=== PATIENT | female | born 1995 | race American Indian/Alaskan Native ===

== ENCOUNTER 2018-12-30 13:31 | Emergency (ER) | payer BC, MEDICAID, OTHER ==
--- NOTE | 2018-12-30 13:41 | Emergency Department Report ---
Blank Doc - Documentation Documentation: This is a 23-year-old female that presents with left sided chest pain that rad iates to left upper ext. Patient stated had syncopal episode yesterday. Stated symptoms of left sided tignling sensation and numbness started 2 weeks ago but chest pain and sycnopal episode was yesterday. Patient also has shortness of breathe. This initial assessment diagnostic orders/clinical plan/treatment(s) is/are subject to change based on patient's health status, clinical progression and re- assessment by fellow clinical providers in the ED. Further treatment and workup at subsequent clinical providers discretion. Patient/guardians urged not to elope from ED s their condition may be serious if not clinically assessed and managed. Initial orders include: 1-labs 2- UA 3- EKG 4- chest xray
[2018-12-30 14:14] LABS: Basophils % (Auto) 0.3 % (0.0-1.8); Eosinophils # (Auto) 0.1 K/mm3 (0.0-0.4); Eosinophils % (Auto) 0.6 % (0.0-4.3); Hematocrit 41.1 % (30.3-42.9); Hemoglobin 12.8 gm/dl (10.1-14.3); Lymphocytes # (Auto) 1.9 K/mm3 (1.2-5.4); Lymphocytes % (Auto) 22.4 % (13.4-35.0); Mean Corpuscular HGB Conc 31 % (30-34); Mean Corpuscular Volume 76 fl (79-97); Monocytes # (Auto) 0.5 K/mm3 (0.0-0.8); Monocytes % (Auto) 6.2 % (0.0-7.3); Platelet Count 298 K/mm3 (140-440); Red Blood Count 5.44 M/mm3 (3.65-5.03); Red Cell Distribution Width 18.5 % (13.2-15.2)
[2018-12-30 14:29] LABS: Partial Thromboplastin Time 33.4 Sec. (24.2-36.6)
[2018-12-30 14:47] LABS: Alanine Aminotransferase 10 units/L (7-56); Albumin 4.5 g/dL (3.9-5); BUN/Creatinine Ratio 18; Blood Urea Nitrogen 11 mg/dL (7-17); Calcium 9.1 mg/dL (8.4-10.2); Hemolysis Index 6
--- NOTE | 2018-12-30 15:21 | XRay Report ---
FINAL REPORT PROCEDURE: XR CHEST ROUTINE 2V TECHNIQUE: PA and lateral views of the chest were obtained HISTORY: Chest Pain COMPARISON: None FINDINGS: Heart size and pulmonary vasculature appear normal. The lungs are clear. No infiltrates masses pulmon doreen edema or pleural effusion visualized. No acute bony abnormalities are identified. There is mild t horacolumbar scoliosis convex to the right. IMPRESSION: No evidence of acute cardiac or pulmonary process. Mild thoracolumbar scoliosis
--- NOTE | 2018-12-30 15:44 | Emergency Department Report ---
ED General Adult HPI - General Chief complaint: Chest Pain Stated complaint: (L) ARM PAIN/DIZZINESS/NUMBNESS HANDS/FEET Time Seen by Provider: 12/30/18 13:38 Source: patient Mode of arrival: Ambulatory Limitations: No Limitations - History of Present Illness Initial comments: Patient is 23 years old female with history of hypertension, noncompliant with her medication. Patient presented to the ER complaining of chest pain for the last week associated with numbness. She denied any shortness of breath, fever or cough. Patient stated that she felt dizzy yesterday at work. Patient stated that she does not check her blood pressure. Severity scale (0 -10): 7 - Related Data Home Medications Medication Instructions Recorded Confirmed Last Taken Vit-Fe Fumar-FA [ 1 tab PO BID 11/11/16 11/11/16 Unknown Vitamin] Previous Rx's Medication Instructions Recorded Last Taken Type Docusate Sodium [Colace] 100 mg PO BID PRN #60 capsule 11/11/16 Unknown Rx Ibuprofen [Motrin] 800 mg PO Q8HR PRN #60 tablet 11/11/16 Unknown Rx Oxycodone HCl/Acetaminophen 1 each PO Q6HR PRN #45 tablet 11/11/16 Unknown Rx [Percocet 7.5/325 mg] RX: Labetalol [Normodyne TAB] 400 mg PO BID #60 tablet 11/11/16 Unknown Rx RX: Labetalol [Normodyne TAB] 400 mg PO BID #60 tablet 11/13/16 Unknown Rx RX: hydroCHLOROthiazide [HCTZ] 25 mg PO QDAY #30 tablet 12/30/18 Unknown Rx Allergies Allergy/AdvReac Type Severity Reaction Status Date / Time No Known Allergies Allergy Verified 12/30/18 13:33 ED Review of Systems ROS: Stated complaint: (L) ARM PAIN/DIZZINESS/NUMBNESS HANDS/FEET Other details as noted in HPI Comment: All other systems reviewed and negative Constitutional: denies: chills, fever Respiratory: denies: cough, orthopnea, shortness of breath, SOB with exertion, SOB at rest, wheezing Cardiovascular: denies: chest pain, palpitations Gastrointestinal: denies: abdominal pain, nausea, vomiting, diarrhea, constipation, hematemesis Musculoskeletal: denies: back pain ED Past Medical Hx - Past Medical History Hx Hypertension: Yes (PIH) Hx Congestive Heart Failure: No Hx Diabetes: No Hx Deep Vein Thrombosis: No Hx Renal Disease: No Hx Sickle Cell Disease: No Hx Seizures: No (preeclampsia) Hx Asthma: No Hx COPD: No Hx HIV: No Additional medical history: GI BLEED,CHRONIC ANEMIA - Surgical History Additional Surgical History: - Social History Smoking Status: Never Smoker Substance Use Type: None - Medications Home Medications: Home Medications Medication Instructions Recorded Confirmed Last Taken Type Docusate Sodium [Colace] 100 mg PO BID PRN #60 capsule 11/11/16 Unknown Rx Ibuprofen [Motrin] 800 mg PO Q8HR PRN #60 tablet 11/11/16 Unknown Rx Oxycodone HCl/Acetaminophen 1 each PO Q6HR PRN #45 tablet 11/11/16 Unknown Rx [Percocet 7.5/325 mg] Vit-Fe Fumar-FA [ 1 tab PO BID 11/11/16 11/11/16 Unknown History Vitamin] RX: Labetalol [Normodyne TAB] 400 mg PO BID #60 tablet 11/11/16 Unknown Rx RX: Labetalol [Normodyne TAB] 400 mg PO BID #60 tablet 11/13/16 Unknown Rx RX: hydroCHLOROthiazide [HCTZ] 25 mg PO QDAY #30 tablet 12/30/18 Unknown Rx ED Physical Exam - General Limitations: No Limitations General appearance: alert, in no apparent distress - Head Head exam: Present: atraumatic, normocephalic, normal inspection - Eye Eye exam: Present: normal appearance, PERRL - ENT ENT exam: Present: normal exam, normal orophraynx, mucous membranes moist - Neck Neck exam: Present: normal inspection, full ROM. Absent: tenderness, meningismus, lymphadenopathy, thyromegaly - Respiratory Respiratory exam: Present: normal lung sounds bilaterally. Absent: respiratory distress, wheezes, rales, rhonchi, stridor, chest wall tenderness, accessory muscle use, decreased breath sounds, prolonged expiratory - Cardiovascular Cardiovascular Exam: Present: regular rate, normal rhythm, normal heart sounds - GI/Abdominal GI/Abdominal exam: Present: soft, normal bowel sounds. Absent: distended, tenderness, guarding, rebound, rigid, organomegaly, mass, bruit, pulsatile mass, hernia - Extremities Exam Extremities exam: Present: normal inspection, full ROM, normal capillary refill. Absent: pedal edema, calf tenderness - Back Exam Back exam: Present: normal inspection, full ROM. Absent: tenderness, CVA tenderness (R), CVA tenderness (L), muscle spasm - Neurological Exam Neurological exam: Present: alert, oriented X3, CN II-XII intact, normal gait, reflexes normal - Psychiatric Psychiatric exam: Present: normal mood - Skin Skin exam: Present: warm, intact, normal color ED Course Vital Signs 12/30/18 12/30/18 13:39 16:08 Temperature 98.4 F Pulse Rate 83 92 H Respiratory 18 Rate Blood Pressure 158/98 Blood Pressure 147/87 [Right] O2 Sat by Pulse 100 Oximetry ED Medical Decision Making - Lab Data Result diagrams: 12/30/18 14:03 12/30/18 14:03 - EKG Data -: EKG Interpreted by [facility] EKG shows normal: sinus rhythm Rate: normal - EKG Data Interpretation: no acute changes - Radiology Data Radiology results: report reviewed Chest x-ray is unremarkable. - Medical Decision Making Patient is 23 years old female with history of hypertension, noncompliant with her medication. Patient presented to the ER complaining of chest pain for the last week associated with numbness. She denied any shortness of breath, fever or cough. Patient stated that she felt dizzy yesterday at work. Patient stated that she does not check her blood pressure. Patient denied any distended this moment. EKG is unremarkable. Chest x-ray is negative. Troponin is negative. D-dimer was ordered by triage, came back slightly up, But no clinical evidence of pulmonary embolism. I believe the patient's symptoms is most likely related to her increased blood pressure. I will start patient on hydrochlorothiazide and advised patient to follow up with her primary care physician. Critical care attestation.: If time is entered above; I have spent that time in minutes in the direct care of this critically ill patient, excluding procedure time. ED Disposition Clinical Impression: Chest pain, Hypertension Disposition: -01 TO HOME OR SELFCARE Is pt being admited?: No Condition: Stable Instructions: Chest Pain (ED), Hypertension (ED) Prescriptions: RX: hydroCHLOROthiazide [HCTZ] 25 mg PO QDAY #30 tablet Referrals: LAILA WEATHERS [Primary Care Provider] - 3-5 Days Forms: Accompanied Note, Work/School Release Form(ED)
[2018-12-30 16:09] VITALS: BP 147/87
== END 2018-12-30 16:10 | disposition home or self-care (01) ==
LOC: ED 13:31
DX: R07.89 Other chest pain (principal); I10 Essential (primary) hypertension; Z86.2 Personal history of diseases of the blood and blood-forming organs and certain disorders involving the immune mechanism; Z79.899 Other long term (current) drug therapy
CPT/HCPCS: 36415; 71046; 80053; 84484; 84703; 85025; 85379; 85610; 85730; 93005; 93010

== ENCOUNTER 2019-04-17 11:40 | Emergency (ER) | payer BC, OTHER ==
--- NOTE | 2019-04-17 11:46 | Emergency Department Report ---
Blank Doc - Documentation Documentation: This is a 24-year-old female that presents with intermittent headaches and left sided cervical paraspinal area with radiation to left shoulder. Denies worst headache. Denies any blurry vision. Denies any head trauma. Denies any other complaints or symptoms. This initial assessment/diagnostic orders/clinical plan/treatment(s) is/are subject to change based on patient's health status, clinical progression and re- assessment by fellow clinical providers in the ED. Further treatment and workup at subsequent clinical providers discretion. Patient/guardians urged not to elope from the ED as their condition may be serious if not clinically assessed and managed. Initial orders include: 1- Patient sent to [facility] for further evaluation and treatment
[2019-04-17] MEDS ORDERED: FLEXERIL PO ONE (12:06)
[2019-04-17] MEDS ORDERED: IBUPROFEN PO ONE (12:06)
[2019-04-17] MEDS ORDERED: DELTASONE PO ONE (12:06)
--- NOTE | 2019-04-17 12:25 | Emergency Department Report ---
HPI - General Chief Complaint: Neck Pain/Injury Time Seen by Provider: 04/17/19 11:44 - HPI HPI: Patient is a 24-year-old -[place] female who comes to the ER today complaining of left trapezius area and neck pain. With it. Patient denies any trauma. She has no fever, nuchal rigidity, fever or other meningeal signs. The pain is worse with movement. On admission the patient's blood pressure was noted to be elevated. She states that she had preeclampsia with the in 2016. However, after that she was never told that she had high blood pressure needed to take medications. Patient denies headache, chest pain or shortness of breath. Patient denies alcohol or drugs or cigarettes. Mother and father are both alive. She doesn't know the details of her father's medical history. But she does know that her mother has a history of hypertension and heart failure. Primary care is Dr. Bakari MEMBRENO Past Medical Hx - Past Medical History Previous Medical History?: Yes Hx Hypertension: Yes (PIH) Hx Congestive Heart Failure: No Hx Diabetes: No Hx Deep Vein Thrombosis: No Hx Renal Disease: No Hx Sickle Cell Disease: No Hx Seizures: No (preeclampsia) Hx Asthma: No Hx COPD: No Hx HIV: No Additional medical history: GI BLEED,CHRONIC ANEMIA - Surgical History Past Surgical History?: Yes Additional Surgical History: - Family History Family history: no significant - Social History Smoking Status: Never Smoker Substance Use Type: None - Medications Home Medications: Home Medications Medication Instructions Recorded Confirmed Last Taken Type Cyclobenzaprine [Flexeril] 10 mg PO TID PRN #10 tablet 04/17/19 Unknown Rx Naproxen [Naprosyn] 500 mg PO BID PRN #20 tablet 04/17/19 Unknown Rx hydroCHLOROthiazide [HCTZ] 25 mg PO DAILY #30 tablet 04/17/19 Unknown Rx predniSONE [Deltasone] 20 mg PO DAILY #5 tablet 04/17/19 Unknown Rx ED Review of Systems ROS: Stated complaint: HEADACHE/NUMBNESS/CHEST PAIN Other details as noted in HPI Comment: All other systems reviewed and negative Physical Exam - Physical Exam Vital Signs: Vital Signs 04/17/19 04/17/19 04/17/19 11:44 12:14 12:15 Temperature 97.7 F Pulse Rate 98 H Respiratory 18 18 Rate Blood Pressure 156/118 Blood Pressure 170/111 [Right] O2 Sat by Pulse 99 Oximetry General: - ENT ENT exam: Present: normal exam, normal orophraynx, mucous membranes moist, normal external ear exam - Neck Neck exam: Present: normal inspection, full ROM. left trapez. muscle spasm noted on exam. no cervical spine tenderness. Absent: tenderness, meningismus - Respiratory Respiratory exam: Present: normal lung sounds bilaterally. Absent: respiratory distress, wheezes, rales, rhonchi, stridor, chest wall tenderness, accessory muscle use, decreased breath sounds, prolonged expiratory - Cardiovascular Cardiovascular Exam: Present: regular rate, normal rhythm, normal heart sounds. Absent: bradycardia, tachycardia, irregular rhythm, systolic murmur, diastolic murmur, rubs, gallop - GI/Abdominal GI/Abdominal exam: Present: soft. Absent: distended, tenderness, guarding, rebound, rigid, pulsatile mass - Rectal Rectal exam: Present: deferred - Extremities Exam Extremities exam: Present: normal inspection, full ROM, other (2+ pulses noted in the bilateral upper extremities. 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 Absent: calf tenderness - Back Exam Back exam: Present: normal inspection, full ROM. Absent: tenderness, CVA tenderness (R), CVA tenderness (L), paraspinal tenderness, vertebral tenderness - Neurological Exam Neurological exam: Present: alert, oriented X3, normal gait, other (Extraocular movements intact. Tongue midline. No facial droop. Facial sensation intact to light touch in the V1, V2, V3 distribution bilaterally. 5 and 5 strength in 4 extremities.. Sensation is intact to light touch in 4 extremities.). Absent: motor sensory deficit - Psychiatric Psychiatric exam: normal affect and mood - Skin Skin exam: Present: warm, dry, intact, normal color. Absent: rash ED Course Vital Signs 04/17/19 04/17/19 04/17/19 11:44 12:14 12:15 Temperature 97.7 F Pulse Rate 98 H Respiratory 18 18 Rate Blood Pressure 156/118 Blood Pressure 170/111 [Right] O2 Sat by Pulse 99 Oximetry ED Medical Decision Making - Lab Data Result diagrams: 04/17/19 15:41 04/17/19 15:41 - Medical Decision Making co left trap pain with spasm on exam. no trauma. she woke up like this. she has no other symptoms. no cp, no sob, no headache bp noted to be inc on admit denies being told to take bp meds in the past review of the EMR suggests otherwise exam is normal with exception of trap muscle spasm on left neuro intact she is here with her friends including her girlfriend that she is cuddled up on the chair with. during one reexam at approx 1430 pt was sound asleep laying on her left side over one of the green ER chairs. But when she woke up she stated she was still in pain. pt has full ROM of the neck. medicated for pain and blood pressure and was initially refractory but then trended down. Long discussion with pt about her bp and need to monitor and take RX she has been given. pt being dc home with dc plan of care including Rx for HCTZ and follow up referral Vital Signs 04/17/19 04/17/19 04/17/19 11:44 12:14 12:15 Temperature 97.7 F Pulse Rate 98 H Respiratory 18 18 Rate Blood Pressure 156/118 Blood Pressure 170/111 [Right] O2 Sat by Pulse 99 Oximetry 04/17/19 04/17/19 13:20 15:31 Temperature 97.6 F Pulse Rate 78 78 Respiratory 16 Rate Blood Pressure 128/88 Blood Pressure 165/107 [Right] O2 Sat by Pulse 100 Oximetry - Differential Diagnosis neck spasm Critical care attestation.: If time is entered above; I have spent that time in minutes in the direct care of this critically ill patient, excluding procedure time. ED Disposition Clinical Impression: Torticollis, Elevated blood pressure reading Disposition: DC-01 TO HOME OR SELFCARE Is pt being admited?: No Does the pt Need Aspirin: No Condition: Stable Instructions: Spasmodic Torticollis (ED), DASH Eating Plan (ED), Hypertension (ED) Additional Instructions: DIET TOLERATED MEDS ORDERED TODAY IN ER FOLLOW UP PCP WITHIN 48 HOURS TO ENSURE YOU ARE GETTING BETTER ACTIVITY TOLERATED MOTRIN OR TYLENOL FOR PAIN OR FEVER RETURN TO THE ER FOR WORSENING SYMPTOMS . Prescriptions: predniSONE [Deltasone] 20 mg PO DAILY #5 tablet Cyclobenzaprine [Flexeril] 10 mg PO TID PRN #10 tablet PRN Reason: Muscle Spasm hydroCHLOROthiazide [HCTZ] 25 mg PO DAILY #30 tablet Naproxen [Naprosyn] 500 mg PO BID PRN #20 tablet PRN Reason: Pain Referrals: PRIMARY CARE, [Primary Care Provider] - 3-5 Days [facility] [Outside] - 3-5 Days Forms: Accompanied Note, Work/School Release Form(ED) Time of Disposition: 13:53
[2019-04-17] MEDS ORDERED: CATAPRES PO ONE (13:12)
[2019-04-17] MEDS ORDERED: APRESOLINE IV ONE (14:56)
[2019-04-17 15:32] VITALS: BP 128/88
[2019-04-17 15:56] LABS: Hematocrit 41.9 % (30.3-42.9); Hemoglobin 13.5 gm/dl (10.1-14.3); Mean Corpuscular HGB Conc 32 % (30-34); Mean Corpuscular Volume 77 fl (79-97); Platelet Count 297 K/mm3 (140-440); Red Blood Count 5.47 M/mm3 (3.65-5.03); Red Cell Distribution Width 15.2 % (13.2-15.2)
[2019-04-17 16:51] LABS: BUN/Creatinine Ratio 20; Blood Urea Nitrogen 12 mg/dL (7-17); Calcium 9.4 mg/dL (8.4-10.2); Hemolysis Index 5
== END 2019-04-17 15:55 | disposition home or self-care (01) ==
LOC: ED 11:40
DX: J03.90 Acute tonsillitis, unspecified (principal); R03.0 Elevated blood-pressure reading, without diagnosis of hypertension; I10 Essential (primary) hypertension; Z86.2 Personal history of diseases of the blood and blood-forming organs and certain disorders involving the immune mechanism; G89.29 Other chronic pain
CPT/HCPCS: 36415; 80048; 85027; 99283; J0360; J7512

== ENCOUNTER 2019-07-18 09:45 | Emergency (ER) | payer SELFPAY ==
[2019-07-18] MEDS ORDERED: DELTASONE PO ONE (10:38)
--- NOTE | 2019-07-18 10:41 | Emergency Department Report ---
HPI - General Chief Complaint: Extremity Injury, Lower Time Seen by Provider: 07/18/19 10:26 - HPI HPI: 24-year-old -[place] female presents to the emergency department with complaint of a 4 day history of some left hip and leg pain. She says that it started Monday night at work and there was no obvious injury or trauma but there was one instance where she says that she moved funny and started to have some discomfort that got progressively worse. The pain worsens with standing, walking and generalized movements of the left leg. She denies any significant back pain. She denies any problems with bowel or bladder. She does say that she has some paresthesias that were occurring last night. The patient went to [facility] and was told that she had a "pinched nerve" that sounds like sciatica. She was placed on tramadol, ibuprofen and Flexeril which she says she has been taking without much relief. The symptoms are causing her to have difficulty performing her job and she was told to get a second opinion. ED Past Medical Hx - Past Medical History Hx Hypertension: Yes (PIH) Hx Congestive Heart Failure: No Hx Diabetes: No Hx Deep Vein Thrombosis: No Hx Renal Disease: No Hx Sickle Cell Disease: No Hx Seizures: No (preeclampsia) Hx Asthma: No Hx COPD: No Hx HIV: No Additional medical history: GI BLEED,CHRONIC ANEMIA - Surgical History Additional Surgical History: - Social History Smoking Status: Never Smoker Substance Use Type: None - Medications Home Medications: Home Medications Medication Instructions Recorded Confirmed Last Taken Type Cyclobenzaprine [Flexeril] 10 mg PO TID PRN #10 tablet 04/17/19 Unknown Rx Naproxen [Naprosyn] 500 mg PO BID PRN #20 tablet 04/17/19 Unknown Rx hydroCHLOROthiazide [HCTZ] 25 mg PO DAILY #30 tablet 04/17/19 Unknown Rx predniSONE [Deltasone] 20 mg PO DAILY #5 tablet 04/17/19 Unknown Rx predniSONE [Deltasone] 20 mg PO BID #8 tab 07/18/19 Unknown Rx ED Review of Systems ROS: Stated complaint: RT HIP PAIN Other details as noted in HPI Comment: All other systems reviewed and negative Constitutional: denies: chills, fever Respiratory: denies: cough, shortness of breath Gastrointestinal: denies: abdominal pain Genitourinary: denies: dysuria, discharge Musculoskeletal: arthralgia, myalgia. denies: joint swelling Skin: denies: rash, lesions Neurological: paresthesias. denies: weakness Physical Exam - Physical Exam Vital Signs: Vital Signs 07/18/19 09:51 Temperature 97.8 F Pulse Rate 78 Respiratory 20 Rate Blood Pressure 178/112 O2 Sat by Pulse 98 Oximetry Physical Exam: GENERAL: The patient is well-developed well-nourished. HENT: Normocephalic. Atraumatic. Patient has moist mucous membranes. EYES: Extraocular motions are intact. NECK: Supple. Trachea is midline. ABDOMEN: There is no abdominal distention. SKIN: Skin is warm and dry. NEURO: The patient is awake, alert, and oriented. The patient is cooperative. The patient has no focal neurologic deficits. Normal speech. MUSCULOSKELETAL: There is some tenderness to palpation to the left lateral thigh and hip but no obvious deformity. Positive left straight leg raise test. There is no limitation range of motion. There is no evidence of acute injury. BACK: No midline thoracic or lumbar tenderness to palpation, step-off or deformity. ED Course Vital Signs 07/18/19 09:51 Temperature 97.8 F Pulse Rate 78 Respiratory 20 Rate Blood Pressure 178/112 O2 Sat by Pulse 98 Oximetry ED Medical Decision Making - Medical Decision Making This patient presents with a complaint of pain from the left hip and buttock down through the left knee. There was a time at work a few days ago where she started feeling some pain after moving in an abnormal way but there is been no fall or obvious trauma. She has no midline thoracic or lumbar pain. She has no problems with bowel or bladder, or any neurological deficits. She is positive on left straight leg raise test. All of the signs and symptoms appear consistent with sciatica or radiculopathy. X-ray or CT imaging does not appear as if it would be helpful at this time. She has been placed on pain medication, muscle relaxers by another previous facility. I am placing the patient on steroids and giving her a referral for an orthopedist. If her pain continues, she may need an MRI in the near future. Otherwise she has been instructed to return to the emergency Department with any worsening of her symptoms are any acute distress. - Differential Diagnosis sciatica, peripheral neuropathy, muscle spasms Critical Care Time: No Critical care attestation.: If time is entered above; I have spent that time in minutes in the direct care of this critically ill patient, excluding procedure time. ED Disposition Clinical Impression: Sciatica of left side, Left leg pain, Elevated blood pressure reading Disposition: TO HOME OR SELFCARE Is pt being admited?: No Condition: Stable Instructions: Sciatica (ED), Arthralgia (ED) Additional Instructions: Please follow-up with a primary care physician in the next few days. I am giving you a referral for 2 different local orthopedic groups, Dr. Good and Mitra, to follow up regarding your hip and leg pain, and suspected sciatica. Take your medications as prescribed. Return to the emergency Department with any worsening of your symptoms or any acute distress. Prescriptions: predniSONE [Deltasone] 20 mg PO BID #8 tab Referrals: STALIN GOOD MD [Staff Physician] - 2-3 Days [facility] [Provider Group] - 2-3 Days Time of Disposition: 10:41
[2019-07-18 10:56] VITALS: BP 171/102
== END 2019-07-18 10:59 | disposition home or self-care (01) ==
LOC: ED 09:45
DX: M54.32 Sciatica, left side (principal); I10 Essential (primary) hypertension
CPT/HCPCS: J7512

== ENCOUNTER 2019-11-09 18:13 | Emergency (ER) | payer OTHER ==
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
[2019-11-09 20:23] LABS: Basophils # (Auto) 0.1 K/mm3 (0.0-0.1); Basophils % (Auto) 0.6 % (0.0-1.8); Eosinophils % (Auto) 0.2 % (0.0-4.3); Hematocrit 39.8 % (30.3-42.9); Hemoglobin 12.5 gm/dl (10.1-14.3); Lymphocytes # (Auto) 2.2 K/mm3 (1.2-5.4); Lymphocytes % (Auto) 15.4 % (13.4-35.0); Mean Corpuscular HGB Conc 31 % (30-34); Mean Corpuscular Volume 74 fl (79-97); Monocytes # (Auto) 0.6 K/mm3 (0.0-0.8); Monocytes % (Auto) 4.1 % (0.0-7.3); Platelet Count 327 K/mm3 (140-440); Red Blood Count 5.35 M/mm3 (3.65-5.03)
[2019-11-09 20:34] LABS: BUN/Creatinine Ratio 22; Blood Urea Nitrogen 13 mg/dL (7-17); Calcium 9.2 mg/dL (8.4-10.2); Hemolysis Index 196
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
[2019-11-09] MEDS ORDERED: ONDANSETRON 4 MG/2 ML INJ ONE (22:06)
[2019-11-09] MEDS ORDERED: KETOROLAC 30 MG/1 ML INJ ONE (22:06)
[2019-11-09] MEDS ORDERED: ONDANSETRON 4 MG/2 ML INJ IV ONE (22:14)
[2019-11-09] MEDS ORDERED: KETOROLAC 30 MG/1 ML INJ IV ONE (22:14)
[2019-11-09 23:16] VITALS: BP 137/91
== END 2019-11-09 23:18 | disposition home or self-care (01) ==
LOC: ED 18:13
DX: S30.1XXA Contusion of abdominal wall, initial encounter (principal); S09.90XA Unspecified injury of head, initial encounter; S19.80XA Other specified injuries of unspecified part of neck, initial encounter; I10 Essential (primary) hypertension; Z79.899 Other long term (current) drug therapy; Z98.890 Other specified postprocedural states; Z86.2 Personal history of diseases of the blood and blood-forming organs and certain disorders involving the immune mechanism; V89.2XXA Person injured in unspecified motor-vehicle accident, traffic, initial encounter; Y93.89 Activity, other specified; Y92.410 Unspecified street and highway as the place of occurrence of the external cause; Y99.8 Other external cause status
CPT/HCPCS: 36415; 70450; 72125; 73562; 74177; 80048; 84703; 85025; 96374; 96375; 99285; J1885; J2405; Q9967

== ENCOUNTER 2019-12-13 14:52 | Emergency (ER) | payer SELFPAY ==
--- NOTE | 2019-12-13 15:32 | Event Note ---
ED Screening Note Date of service: 12/13/19 Time: 15:28 ED Screening Note: This is a 24 y.o. F. that presents with sore throat and chills for 3 days. Taking Benadryl. - n/v, fever This initial assessment/diagnostic orders/clinical plan/treatment(s) is/are subject to change based on patients health status, clinical progression and re- assessment by fellow clinical providers in the ED. Further treatment and workup at subsequent clinical providers discretion. Patient/guardian urged not to elope from the ED as their condition may be serious if not clinically assessed and managed. Initial orders include: rapid strep
--- NOTE | 2019-12-13 16:41 | Emergency Department Report ---
ED ENT HPI - General Chief complaint: Upper Respiratory Infection Stated complaint: CHILLS/COUGH/SORETHROAT Time Seen by Provider: 12/13/19 15:28 Source: patient Mode of arrival: Ambulatory Limitations: No Limitations - History of Present Illness Initial comments: Thom is a 24 yo female with hx of hypertension who presents with sore throat and chills for 3 days. Hurts to swallow. 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 Mild pain. +nasal congestion. She does not take medication for hypertension per her personal choice. MD complaint: sore throat -: Gradual Severity: moderate Consistency: constant Worsens with: swallowing Associated Symptoms: fever - Related Data Previous Rx's Medication Instructions Recorded Last Taken Type Cyclobenzaprine [Flexeril] 10 mg PO TID PRN #10 tablet 04/17/19 Unknown Rx Naproxen [Naprosyn] 500 mg PO BID PRN #20 tablet 04/17/19 Unknown Rx hydroCHLOROthiazide [HCTZ] 25 mg PO DAILY #30 tablet 04/17/19 Unknown Rx predniSONE [Deltasone] 20 mg PO DAILY #5 tablet 04/17/19 Unknown Rx predniSONE [Deltasone] 20 mg PO BID #8 tab 07/18/19 Unknown Rx Cyclobenzaprine HCl [Flexeril 5 MG 5 mg PO TID PRN #21 tab 11/09/19 Unknown Rx TAB] Naproxen [Naprosyn] 500 mg PO BID #14 tablet 11/09/19 Unknown Rx Clindamycin [Clindamycin CAP] 2 tab PO TID 10 Days #60 capsule 12/13/19 Unknown Rx Allergies Allergy/AdvReac Type Severity Reaction Status Date / Time No Known Allergies Allergy Verified 07/18/19 09:46 ED Dental HPI - General Chief complaint: Upper Respiratory Infection Stated complaint: CHILLS/COUGH/SORETHROAT Time Seen by Provider: 12/13/19 15:28 Source: patient Mode of arrival: Ambulatory Limitations: No Limitations - Related Data Previous Rx's Medication Instructions Recorded Last Taken Type Cyclobenzaprine [Flexeril] 10 mg PO TID PRN #10 tablet 04/17/19 Unknown Rx Naproxen [Naprosyn] 500 mg PO BID PRN #20 tablet 04/17/19 Unknown Rx hydroCHLOROthiazide [HCTZ] 25 mg PO DAILY #30 tablet 04/17/19 Unknown Rx predniSONE [Deltasone] 20 mg PO DAILY #5 tablet 04/17/19 Unknown Rx predniSONE [Deltasone] 20 mg PO BID #8 tab 07/18/19 Unknown Rx Cyclobenzaprine HCl [Flexeril 5 MG 5 mg PO TID PRN #21 tab 11/09/19 Unknown Rx TAB] Naproxen [Naprosyn] 500 mg PO BID #14 tablet 11/09/19 Unknown Rx Clindamycin [Clindamycin CAP] 2 tab PO TID 10 Days #60 capsule 12/13/19 Unknown Rx Allergies Allergy/AdvReac Type Severity Reaction Status Date / Time No Known Allergies Allergy Verified 07/18/19 09:46 ED Review of Systems ROS: Stated complaint: CHILLS/COUGH/SORETHROAT Other details as noted in HPI Comment: All other systems reviewed and negative Constitutional: chills, fever, malaise ENT: congestion Respiratory: denies: cough, shortness of breath Cardiovascular: denies: chest pain Gastrointestinal: denies: abdominal pain, nausea ED Past Medical Hx - Past Medical History Previous Medical History?: Yes Hx Hypertension: Yes (PIH) Hx Congestive Heart Failure: No Hx Diabetes: No Hx Deep Vein Thrombosis: No Hx Renal Disease: No Hx Sickle Cell Disease: No Hx Seizures: No (preeclampsia) Hx Asthma: No Hx COPD: No Hx HIV: No Additional medical history: GI BLEED,CHRONIC ANEMIA - Surgical History Additional Surgical History: - Social History Smoking Status: Never Smoker Substance Use Type: None - Medications Home Medications: Home Medications Medication Instructions Recorded Confirmed Last Taken Type Cyclobenzaprine [Flexeril] 10 mg PO TID PRN #10 tablet 04/17/19 Unknown Rx Naproxen [Naprosyn] 500 mg PO BID PRN #20 tablet 04/17/19 Unknown Rx hydroCHLOROthiazide [HCTZ] 25 mg PO DAILY #30 tablet 04/17/19 Unknown Rx predniSONE [Deltasone] 20 mg PO DAILY #5 tablet 04/17/19 Unknown Rx predniSONE [Deltasone] 20 mg PO BID #8 tab 07/18/19 Unknown Rx Cyclobenzaprine HCl [Flexeril 5 MG 5 mg PO TID PRN #21 tab 11/09/19 Unknown Rx TAB] Naproxen [Naprosyn] 500 mg PO BID #14 tablet 11/09/19 Unknown Rx Clindamycin [Clindamycin CAP] 2 tab PO TID 10 Days #60 capsule 12/13/19 Unknown Rx ED Physical Exam - General Limitations: No Limitations General appearance: alert, in no apparent distress, other (normal voice appears well) - Head Head exam: Present: atraumatic, normocephalic - Eye Eye exam: Present: normal appearance - ENT ENT exam: Present: other (enlarged tonsil 2 cm in diameter on right, no tonsi llar swelling on the left) - Neck Neck exam: Present: normal inspection, full ROM - Respiratory Respiratory exam: Present: normal lung sounds bilaterally. Absent: respiratory distress, wheezes, rales, rhonchi - Cardiovascular Cardiovascular Exam: Present: regular rate, normal rhythm, normal heart sounds. Absent: systolic murmur, diastolic murmur, rubs, gallop - GI/Abdominal GI/Abdominal exam: Present: soft, normal bowel sounds. Absent: distended, tenderness, guarding, rebound - Extremities Exam Extremities exam: Present: normal inspection - Neurological Exam Neurological exam: Present: alert, oriented X3 - Psychiatric Psychiatric exam: Present: normal affect, normal mood - Skin Skin exam: Present: warm, dry, intact, normal color. Absent: rash ED Course Vital Signs 12/13/19 14:55 Temperature 98.7 F Pulse Rate 100 H Respiratory 16 Rate Blood Pressure 175/113 O2 Sat by Pulse 100 Oximetry ED Medical Decision Making - Medical Decision Making Ms. Hooper has a 2 cm right peritonsillar abscess. She declined needle aspiration. I informed her that antibiotics may not resolve the issue. Due to small size, normal voice she is able to be discharged. She understand to return if symptoms do not improve. She received IV dexamethasone and IV clindamycin in the emergency department. Critical care attestation.: If time is entered above; I have spent that time in minutes in the direct care of this critically ill patient, excluding procedure time. ED Disposition Clinical Impression: Peritonsillar abscess Disposition: DC-01 TO HOME OR SELFCARE Is pt being admited?: No Does the pt Need Aspirin: No Condition: Stable Instructions: Peritonsillar Abscess (ED) Prescriptions: Clindamycin [Clindamycin CAP] 2 tab PO TID 10 Days #60 capsule Referrals: CORBIN KEITH MD [Staff Physician] - 3-5 Days
[2019-12-13] MEDS ORDERED: dexAMETHasone 20 MG/5 ML VIAL IV ONE (16:45)
[2019-12-13 18:20] VITALS: BP 142/88
== END 2019-12-13 18:02 | disposition home or self-care (01) ==
LOC: ED 14:52
DX: J36 Peritonsillar abscess (principal); I10 Essential (primary) hypertension
CPT/HCPCS: 87116; 87430; 96365; 96375; 99283; J1100

== ENCOUNTER 2020-10-09 23:03 | Emergency (ER) | payer SELFPAY ==
--- NOTE | 2020-10-10 02:17 | XRay Report ---
XR foot 3+V RT INDICATION: Right great toe pain. COMPARISON: No relevant prior imaging study available. FINDINGS: No acute skeletal abnormality. No significant soft tissue abnormality. IMPRESSION: 1. No acute findings. Signer Name: Arnold Winchester MD Signed: 10/10/2020 2:12 AM Workstation Name: [id number]
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
[2020-10-10 03:06] VITALS: BP 136/89
[2020-10-10] MEDS ORDERED: KETOROLAC 30 MG/1 ML INJ IM ONE (03:51)
== END 2020-10-10 03:05 | disposition home or self-care (01) ==
LOC: ED 23:03
DX: S99.921A Unspecified injury of right foot, initial encounter (principal); I10 Essential (primary) hypertension; Z98.890 Other specified postprocedural states; Z79.899 Other long term (current) drug therapy
CPT/HCPCS: 73630; 96372; 99283; J1885

== ENCOUNTER 2020-10-30 11:51 | Emergency (ER) | payer SELFPAY ==
--- NOTE | 2020-10-30 12:02 | Event Note ---
ED Screening Note Date of service: 10/30/20 Time: 12:00 ED Screening Note: 25-year-old -[place] female presents to the emergency room for complaints of body aches nausea vomiting diarrhea and no taste or smell. Patient reports a history of hypertension during her gestational . This initial assessment/diagnostic orders/clinical plan/treatment(s) is/are subject to change based on patients health status, clinical progression and re- assessment by fellow clinical providers in the ED. Further treatment and workup at subsequent clinical providers discretion. Patient/guardian urged not to elope from the ED as their condition may be serious if not clinically assessed and managed. Initial orders include:
[2020-10-30 13:02] LABS: Bilirubin,Urine NEG (Negative); Blood,Urine SM (Negative); Color,Urine Yellow (Yellow); Mucus,Urine FEW /HPF; Protein,Urine <15 mg/dL mg/dL (Negative); Urobilinogen,Urine < 2.0 mg/dL (<2.0)
[2020-10-30 13:03] LABS: HCG Qualitative,Urine Negative (Negative)
[2020-10-30 13:45] LABS: Basophils # (Auto) 0.1 K/mm3 (0.0-0.1); Eosinophils % (Auto) 0.3 % (0.0-4.3); Hematocrit 37.9 % (30.3-42.9); Hemoglobin 12.3 gm/dl (10.1-14.3); Lymphocytes # (Auto) 2.7 K/mm3 (1.2-5.4); Lymphocytes % (Auto) 39.6 % (13.4-35.0); Mean Corpuscular HGB Conc 32 % (30-34); Mean Corpuscular Volume 77 fl (79-97); Monocytes # (Auto) 0.3 K/mm3 (0.0-0.8); Monocytes % (Auto) 4.8 % (0.0-7.3); Platelet Count 293 K/mm3 (140-440); Red Blood Count 4.95 M/mm3 (3.65-5.03); Red Cell Distribution Width 15.1 % (13.2-15.2)
[2020-10-30 13:59] LABS: Alanine Aminotransferase 11 units/L (7-56); Albumin 4.3 g/dL (3.9-5); Blood Urea Nitrogen 10 mg/dL (7-17); Calcium 9.4 mg/dL (8.4-10.2); Hemolysis Index 7
[2020-10-30 14:33] LABS: BUN/Creatinine Ratio 14
[2020-10-30] MEDS ORDERED: DICYCLOMINE 20 MG/2 ML INJ IM ONE (15:20)
[2020-10-30] MEDS ORDERED: ONDANSETRON 4 MG ODT TAB PO ONE (15:20)
[2020-10-30] MEDS ORDERED: KETOROLAC 60 MG/2 ML INJ IM ONE (15:20)
--- NOTE | 2020-10-30 15:21 | Emergency Department Report ---
ED General Adult HPI - General Chief complaint: Nausea/Vomiting/Diarrhea Stated complaint: NAUSE/DIARRHEA/BODY PAIN/TASTE Time Seen by Provider: 10/30/20 14:15 Source: patient Mode of arrival: Ambulatory Limitations: No Limitations - History of Present Illness Initial comments: 25-year-old female presents to the ER today complaint of nausea, vomiting, di arrhea, body aches and headache. Patient states that her symptoms started yesterday. Patient states that she has vomited multiple times since her symptoms started yesterday. She states that emesis is mainly liquid or food. She states that she cannot keep anything down. She also reports diarrhea. She states that she has had about 6 episodes of watery stools per day. She denies any coffee-ground emesis, hematemesis, melena or hematochezia. She reports abdominal cramping, as well as lack of taste and smell. She denies any URI symptoms, cough, fever or chills. She states that her job did inform them that there was somebody at her facility who was COVID-19 positive, but it was not anybody in her department. Otherwise she denies any known COVID-19 contacts, or any other ill contacts. She denies any recent antibiotic use. She denies any bad food intake, or recent travel. Patient blood pressure noted to be elevated at triage, but patient denies any history of hypertension or any other significant past medical history. MD Complaint: Nausea, vomiting, diarrhea, body aches and headache -: Gradual (onset yesterday) - Related Data Previous Rx's Medication Instructions Recorded Last Taken Type hydroCHLOROthiazide [HCTZ] 25 mg PO DAILY #30 tablet 04/17/19 Unknown Rx Dicyclomine [Bentyl] 10 mg PO TID #30 capsule 10/30/20 Unknown Rx Ketorolac [Toradol] 10 mg PO Q6H PRN #20 tablet 10/30/20 Unknown Rx Ondansetron [Zofran ODT TAB] 4 mg PO ONCE PRN #12 tab.rapdis 10/30/20 Unknown Rx Allergies Allergy/AdvReac Type Severity Reaction Status Date / Time No Known Allergies Allergy Verified 07/18/19 09:46 ED Review of Systems ROS: Stated complaint: NAUSE/DIARRHEA/BODY PAIN/TASTE Other details as noted in HPI Comment: All other systems reviewed and negative Constitutional: denies: chills, fever Eyes: denies: eye pain, eye discharge, vision change ENT: denies: ear pain, throat pain Respiratory: denies: cough, shortness of breath, wheezing Cardiovascular: denies: chest pain, palpitations Gastrointestinal: abdominal pain, nausea, vomiting, diarrhea. denies: constipation, hematemesis, melena, hematochezia Genitourinary: denies: urgency, dysuria, discharge Musculoskeletal: arthralgia, myalgia Neurological: headache Psychiatric: denies: anxiety, depression Hematological/Lymphatic: denies: easy bleeding, easy bruising ED Past Medical Hx - Past Medical History Previous Medical History?: Yes Hx Hypertension: Yes (PIH) Hx Congestive Heart Failure: No Hx Diabetes: No Hx Deep Vein Thrombosis: No Hx Renal Disease: No Hx Sickle Cell Disease: No Hx Seizures: (preeclampsia) Hx Asthma: No Hx COPD: No Hx HIV: No Additional medical history: GI BLEED,CHRONIC ANEMIA - Surgical History Past Surgical History?: Yes Additional Surgical History: - Social History Smoking Status: Never Smoker Substance Use Type: None - Medications Home Medications: Home Medications Medication Instructions Recorded Confirmed Last Taken Type hydroCHLOROthiazide [HCTZ] 25 mg PO DAILY #30 tablet 04/17/19 Unknown Rx Dicyclomine [Bentyl] 10 mg PO TID #30 capsule 10/30/20 Unknown Rx Ketorolac [Toradol] 10 mg PO Q6H PRN #20 tablet 10/30/20 Unknown Rx Ondansetron [Zofran ODT TAB] 4 mg PO ONCE PRN #12 tab.rapdis 10/30/20 Unknown Rx ED Physical Exam - General Limitations: No Limitations General appearance: alert, in no apparent distress - Head Head exam: Present: atraumatic, normocephalic, normal inspection - Eye Eye exam: Present: normal appearance, PERRL, EOMI Pupils: Present: normal accommodation - ENT ENT exam: Present: normal exam, mucous membranes moist - Neck Neck exam: Present: normal inspection, full ROM. Absent: tenderness, meningismus - Respiratory Respiratory exam: Present: normal lung sounds bilaterally. Absent: respiratory distress - Cardiovascular Cardiovascular Exam: Present: regular rate, normal rhythm, normal heart sounds - GI/Abdominal GI/Abdominal exam: Present: soft. Absent: distended, tenderness, guarding - Extremities Exam Extremities exam: Present: normal inspection - Neurological Exam Neurological exam: Present: alert, oriented X3, CN II-XII intact, normal gait - Psychiatric Psychiatric exam: Present: normal affect, normal mood - Skin Skin exam: Present: intact ED Course Vital Signs 10/30/20 10/30/20 10/30/20 11:57 15:35 15:40 Temperature 98.1 F Pulse Rate 80 Respiratory 18 18 Rate Blood Pressure 152/101 146/92 [Right] O2 Sat by Pulse 99 Oximetry ED Medical Decision Making - Lab Data Result diagrams: 10/30/20 12:34 10/30/20 12:31 - Medical Decision Making 25-year-old female presents to the ER today complaint of body aches, headache, nausea, vomiting, diarrhea, abdominal pain, loss of taste and smell. Labs reviewed, CBC normal, CMP showed mildly elevated glucose, but otherwise CMP unremarkable, urinalysis showed no evidence of a UTI, no ketones and no glucose in the urine. Patient is well-appearing, nontoxic, does not appear to be in any acute pain or respiratory distress. She appears well-hydrated. She has a soft nontender abdomen. Her blood pressure was noted to be elevated at triage, patient did have hydralazine listed as a blood pressure medication, but she denies any history of hypertension any significant past medical history. Her blood pressure did improve on recheck without any intervention. Remaining vital signs otherwise normal. Suspect patient symptoms related to viral illness. No further work-up indicated in the ER at this time. Discussed suspected diagnosis with patient. Also informed her that if she is concerned for COVID-19 she can follow-up with local urgent care, [facility] drive-through, or primary care doctor for testing. Patient expressed understanding of instructions and agree with plan. Patient stable at time of discharge. Critical care attestation.: If time is entered above; I have spent that time in minutes in the direct care of this critically ill patient, excluding procedure time. ED Disposition Clinical Impression: Viral syndrome Disposition: DC-01 TO HOME OR SELFCARE Is pt being admited?: No Does the pt Need Aspirin: No Condition: Stable Instructions: Viral Gastroenteritis, Adult, Viral Illness, Adult Additional Instructions: Take the medications prescribed here as directed. I recommend that you do a bland diet, and lots of fluids. You can follow-up with one of the facilities on the list given for outpatient COVID-19 testing. Follow-up with your primary care doctor. Return to the ER if your symptoms changes or worsens. Prescriptions: Dicyclomine [Bentyl] 10 mg PO TID #30 capsule Ketorolac [Toradol] 10 mg PO Q6H PRN #20 tablet PRN Reason: Pain Ondansetron [Zofran ODT TAB] 4 mg PO ONCE PRN #12 tab.rapdis PRN Reason: Vomiting Referrals: LAILA WEATHERS MD [Staff Physician] - 3-5 Days Forms: Work/School Release Form(ED) Time of Disposition: 15:29
[2020-10-30 15:41] VITALS: BP 146/92
== END 2020-10-30 15:55 | disposition home or self-care (01) ==
LOC: ED 11:51
DX: B34.9 Viral infection, unspecified (principal); I10 Essential (primary) hypertension; Z79.899 Other long term (current) drug therapy; Z86.2 Personal history of diseases of the blood and blood-forming organs and certain disorders involving the immune mechanism; Z98.890 Other specified postprocedural states
CPT/HCPCS: 36415; 80053; 81001; 81025; 85025; 96372; 99283; J0500; J1885; Q0162